=== PATIENT | male | born 1985 | race African-American/Black ===

== ENCOUNTER 2019-02-11 13:14 | Emergency (ER) | payer SELFPAY ==
[2019-02-11 13:22] VITALS: BP 122/73; PULSE 100; TEMP 98.8; BMI 28.0
--- NOTE | 2019-02-11 14:04 | PDOC ---
History of Present Illness - General Chief Complaint: Sore Throat Stated Complaint: COLD SYMPTOMS Time Seen by Provider: 02/11/19 13:25 History Source: Patient Exam Limitations: Clinical Condition - History of Present Illness Initial Comments: 02/11/19 14:04 Patient with no significant past medical history presented with complaint of 2- day history of sore throat, painful to swallow and white patches in tonsils with tactile fever. Patient did not take anything for symptoms Is this a multiple visit Asthma Patient?: No Timing/Duration: other (3 days) Past History - Past Medical History Allergies/Adverse Reactions: Allergies Allergy/AdvReac Type Severity Reaction Status Date / Time No Known Allergies Allergy Verified 02/11/19 13:18 Home Medications: Ambulatory Orders Amox-Tr/K Cl [Augmentin - 875Mg Tablet] 1 tab PO BID #14 tablet 02/11/19 COPD: No Other medical history: DENIES - Immunization History Immunization Up to Date: Yes - Psycho Social/Smoking Cessation Hx Smoking History: Current every day smoker Information on smoking cessation initiated: No Review of Systems - Review of Systems Able to Perform ROS?: Yes Is the patient limited Vietnamese proficient: No Constitutional: Yes: Fever (tactile fever). No: Chills, Malaise HEENTM: Yes: Symptoms Reported, See HPI, Throat Pain, Difficulty Swallowing. No : Eye Pain, Blurred Vision, Tearing, Recent change in vision, Double Vision, Cataracts, Ear Pain, Ocular Prothesis, Ear Discharge, Nose Pain, Nose Congestion , Tinnitus, Nose Bleeding, Hearing Loss, Throat Swelling, Mouth Pain, Dental Problems, Mouth Swelling, Other Respiratory: No: Symptoms reported, See HPI, Cough, Orthopnea, Shortness of Breath, SOB with Exertion, SOB at Rest, Stridor, Wheezing, Productive cough, Hemoptysis, Other Cardiac (ROS): No: Symptoms Reported, See HPI, Chest Pain, Edema, Irregular Heart Rate, Lightheadedness, Palpitations, Syncope, Chest Tightness, Other ABD/GI: No: Symptoms Reported, Constipated, Diarrhea, Nausea, Vomiting, Abdominal cramping : No: Symptoms Reported Musculoskeletal: No: Symptoms Reported Integumentary: No: Symptoms Reported Neurological: No: Symptoms reported All Other Systems: Reviewed and Negative *Physical Exam - Vital Signs Last Vital Signs Temp Pulse Resp BP Pulse Ox 98.8 F 100 H 18 122/73 99 02/11/19 13:20 02/11/19 13:20 02/11/19 13:20 02/11/19 13:20 02/11/19 13:20 - Physical Exam 02/11/19 14:00 GENERAL: Well developed, well nourished. Awake and alert. No acute distress. HEENT: Mild pharyngeal erythema with bilateral large tonsils with white exudate in bilateral tonsils. Normocephalic, atraumatic. PERRLA, EOMI. No conjunctival pallor. Sclera are non-icteric. Moist mucous membranes. NECK: Supple. Full ROM. CARDIOVASCULAR: Regular rate and rhythm. No murmurs, rubs, or gallops. Distal pulses are 2+ and symmetric. PULMONARY: No evidence of respiratory distress. Lungs clear to auscultation bilaterally. No wheezing, rales or rhonchi. ABDOMINAL: Soft. Non-tender. Non-distended. No rebound or guarding. No organomegaly. Normoactive bowel sounds. MUSCULOSKELETAL Normal range of motion at all joints. SKIN: Warm and dry. Normal capillary refill. No rashes. NEUROLOGICAL: Alert, awake, appropriate. Gait is normal without ataxia. PSYCHIATRIC: Cooperative. Good eye contact. Appropriate mood General Appearance: Yes: Nourished, Appropriately Dressed. No: Apparent Distress Medical Decision Making - Medical Decision Making 02/11/19 14:04 Patient with no significant past medical history presented with complaint of 2- day history of sore throat, painful to swallow and white patches in tonsils with tactile fever. Patient did not take anything for symptoms Exam significant for mild pharyngeal erythema with bilateral enlarged tonsils with white exudates .patient afebrile now. Symptoms likely viral pharyngitis with tonsillitis versus strep. Rapid strep test ordered to rule out strep pharyngitis 02/11/19 15:03 Rapid strep negative however given patient enlarged tonsils with exudate and low sensitivity of rapid strep test, patient will be treated Augmentin antibiotics pending throat culture result with ENT follow-up Discharge - Discharge Information Problems reviewed: Yes Clinical Impression/Diagnosis: Tonsillitis Pharyngitis Qualifiers: Pharyngitis/tonsillitis etiology: unspecified etiology Qualified Code(s): J02.9 - Acute pharyngitis, unspecified Condition: Stable Disposition: HOME - Admission No - Additional Discharge Information Prescriptions: Amox-Tr/K Cl [Augmentin - 875Mg Tablet] 1 tab PO BID #14 tablet - Follow up/Referral Referrals: Donald Villar MD [Staff Physician] - - Patient Discharge Instructions Patient Printed Discharge Instructions: DI for Pharyngitis/Tonsillopharyngitis -- Adult Additional Instructions: Take medications as prescribed and finish it. Increase fluid intake. Gargle with salt water as needed for throat pain and take motrin as needed for pain. Follow-up with referred ENT if symptoms persist for more than 4 days - Post Discharge Activity
== END 2019-02-11 14:32 | disposition home or self-care (01) ==
LOC: JERFT 13:14
DX: J03.90 Acute tonsillitis, unspecified (principal); F17.210 Nicotine dependence, cigarettes, uncomplicated
CPT/HCPCS: 87070; 87880; 99281-25

== ENCOUNTER 2023-04-04 10:01 | Emergency (ER) | payer SELFPAY ==
[2023-04-04 10:42] VITALS: RESP 20; BMI 29.7
[2023-04-04] MEDS ORDERED: SULFAMETHOXAZOLE/TRIMETHOPRIM 800MG/160MG D.S. TABLET PO ONE (12:18)
[2023-04-04] MEDS ORDERED: AMOX TR/POT CLAV 875MG/125MG TABLETS (FP) PO ONE (12:18)
[2023-04-04] MEDS ORDERED: SULFAMETHOXAZOLE/TRIMETHOPRIM 800MG/160MG D.S. TABLET ONE (12:36)
[2023-04-04] MEDS ORDERED: AMOX TR/POT CLAV 875MG/125MG TABLETS (FP) ONE (12:36)
[2023-04-04 14:03] VITALS: BP 112/75; PULSE 101; TEMP 98
== END 2023-04-04 14:03 | disposition home or self-care (01) ==
LOC: JER 10:01
DX: R21 Rash and other nonspecific skin eruption (principal); L03.213 Periorbital cellulitis; R22.0 Localized swelling, mass and lump, head
CPT/HCPCS: 99283-25

== ENCOUNTER 2023-04-17 22:21 | Emergency (ER) | payer SELFPAY ==
[2023-04-17 22:29] VITALS: TEMP 97.6; BMI 28.3
[2023-04-17] MEDS ORDERED: DALBAVANCIN HCL 500 MG VIAL (RESTRICTED TO ID ONLY) IVPB ONE (23:09)
[2023-04-17 23:15] LABS: EOS % 9.9 % (0-4.5); HEMATOCRIT 43.2 % (35.4-49); HEMOGLOBIN 14.7 GM/dL (11.7-16.9); LYMPH % 20.7 % (8-40); MCH 30.2 pg (25.7-33.7); MEAN CELL VOLUME 88.8 fl (80-96); MEAN PLT VOLUME 7.2 fl (7.5-11.1); MONO % 4.9 % (3.8-10.2); NEUT % 63.5 % (42.8-82.8); PLATELET COUNT 365 10^3/uL (134-434); RBC 4.87 M/mm3 (4.00-5.60); RDW 13.5 % (11.9-15.9); WHITE BLOOD COUNT 9.5 K/mm3 (4.0-10.0)
[2023-04-17] MEDS: DALBAVANCIN HCL 1,500 MG in DEXTROSE 5%-WATER - 500 ML IVPB ONE (23:25)
[2023-04-18 00:05] LABS: POTASSIUM 3.9 mmol/L (3.5-5.1)
[2023-04-18 00:08] LABS: CALCIUM 8.7 mg/dL (8.5-10.1)
[2023-04-18 00:09] LABS: ALBUMIN 3.6 g/dl (3.4-5.0)
[2023-04-18 00:13] LABS: CREATININE 0.9 mg/dL (0.55-1.3); TOT PROT 6.9 g/dl (6.4-8.2)
[2023-04-18 00:26] LABS: BLOOD UREA NITROGEN 7.8 mg/dL (7-18)
[2023-04-18 00:35] LABS: BILIRUBIN,TOTAL 0.1 mg/dL (0.2-1)
[2023-04-18 00:45] VITALS: BP 127/78; PULSE 80; RESP 16
== END 2023-04-18 01:12 | disposition home or self-care (01) ==
LOC: JER 22:21
DX: L03.211 Cellulitis of face (principal); R21 Rash and other nonspecific skin eruption; R22.0 Localized swelling, mass and lump, head
CPT/HCPCS: 36415; 80053; 85025; 99284-25; J0875

== ENCOUNTER 2023-05-08 09:35 | Emergency (ER) | payer OTHER ==
[2023-05-08 10:14] VITALS: TEMP 98.4; BMI 28.3
[2023-05-08] MEDS ORDERED: PIPERACILLIN/TAZOB 4.5 GM 4.5 GM/100 ML BAG IVPB ONE (11:00)
[2023-05-08] MEDS ORDERED: VANCOMYCIN 1 GRAM (PRE-DOCKED) 1,000 MG/250 ML BAG IVPB ONE (11:00)
[2023-05-08 11:07] LABS: BASO % 0.5 % (0-2.0); EOS % 10.5 % (0-4.5); HEMATOCRIT 46.6 % (35.4-49); HEMOGLOBIN 15.6 GM/dL (11.7-16.9); LYMPH % 12.4 % (8-40); MCH 29.9 pg (25.7-33.7); MCHC 33.4 g/dl (32.0-35.9); MEAN CELL VOLUME 89.4 fl (80-96); MEAN PLT VOLUME 7.7 fl (7.5-11.1); MONO % 7.9 % (3.8-10.2); NEUT % 68.7 % (42.8-82.8); PLATELET COUNT 311 10^3/uL (134-434); RBC 5.21 M/mm3 (4.00-5.60); RDW 13.3 % (11.9-15.9); WHITE BLOOD COUNT 7.3 K/mm3 (4.0-10.0)
[2023-05-08 11:24] LABS: CHLORIDE 106 mmol/L (98-107); SODIUM 140 mmol/L (136-145)
[2023-05-08 11:25] LABS: CALCIUM 9.5 mg/dL (8.5-10.1)
[2023-05-08 11:26] LABS: ALBUMIN 3.7 g/dl (3.4-5.0); ANION GAP 6 mmol/L (4-13); BLOOD UREA NITROGEN 5.4 mg/dL (7-18); CO2 28 mmol/L (21-32); GLUCOSE,RANDOM 133 mg/dL (74-106)
[2023-05-08 11:29] LABS: SGOT/AST 21 U/L (15-37); SGPT/ALT 32 U/L (13-61)
[2023-05-08 11:31] LABS: BILIRUBIN,TOTAL 0.4 mg/dL (0.2-1); TOT PROT 7.4 g/dl (6.4-8.2)
[2023-05-08 11:32] LABS: ALK PHOS 83 U/L (45-117)
[2023-05-08 12:15] LABS: ERYTHROCYTE SEDIMENTATION RATE 4 mm/hr (0-10)
[2023-05-08] MEDS: PIPERACILLIN/TAZOB 4.5 GM 4.5 GM in DEXTROSE 5%-WATER 100 ML IVPB ONE (12:27)
[2023-05-08] MEDS: VANCOMYCIN 1,000 MG in DEXTROSE 5%-WATER - 250 ML IVPB ONE (12:27)
[2023-05-08 14:53] VITALS: BP 149/87; PULSE 70; RESP 19
== END 2023-05-08 14:53 | disposition short-term general hospital (02) ==
LOC: JER 09:35
DX: H57.13 Ocular pain, bilateral (principal); H05.013 Cellulitis of bilateral orbits; Z20.822 Contact with and (suspected) exposure to COVID-19
CPT/HCPCS: 0241U-QW; 36415; 70481-TC; 80053; 85025; 85651; 86140; 87040; 96365; 96368; 99285-25; Q9967